=== PATIENT | male | born 1970 ===

== ENCOUNTER 2019-03-29 16:50 | Inpatient (IN) ==
[2019-03-29] MEDS ORDERED: ALBUTEROL 2.5 MG/3 ML NEB RESP TX PRN (18:43)
[2019-03-29] MEDS: SODIUM CHLORIDE 0.9% 1,000 ML IV SCH ×2 (18:45→22:35)
[2019-03-29] MEDS: MORPHINE 4 MG/1 ML VIAL IV PRN ×2 (20:04→23:33)
[2019-03-29] MEDS: ENOXAPARIN 30 MG/0.3 ML SYRINGE SUBCUT SCH (20:06)
[2019-03-29 21:46] LABS: Hepatitis B Core IgM Quant 0.18 Index; Hepatitis B Surface Ag Quant 0.23 Index; Hepatitis B Surface Ag Result Negative (Negative); Hepatitis C Virus Ab Quant > 11.00 Index; Hepatitis C Virus Ab Result Positive (Negative)
[2019-03-29] MEDS: PIPERACILLIN/TAZOBACTAM 3,375 MG in SODIUM CHLORIDE 0.9% 100 ML IV SCH (23:34)
[2019-03-30] MEDS: HYDROmorphone 2 MG/1 ML VIAL IV PRN ×5 (01:48→21:44)
[2019-03-30] MEDS: SODIUM CHLORIDE 0.9% 1,000 ML IV SCH ×4 (03:14→14:56)
[2019-03-30 03:26] LABS: CKMB % 1.1 %
[2019-03-30 08:14] LABS: Basophils % 0.2 % (0.0-0.8); Eosinophils % 0.1 % (0.00-10.9); Hematocrit 37.2 VOL% (42.0-52.0); Hemoglobin 12.7 GM/DL (14.0-18.0); Immature Granulocytes % 0.6 %; Immature Granulocytes Absolute 0.07 #; Lymphocytes # 1.3 10*3/uL (1.4-4.0); Mean Corpuscular HGB Conc 34.1 GM/DL (32-36); Mean Corpuscular Volume 93.7 FL (87-102); Mean Platelet Volume 10.4 FL (9.6-12.0); Monocytes % 8.9 % (1.7-12.7); Neutrophils % 79.2 % (38.7-73.9); Platelet Count 116 T/CUMM (130-400); Red Blood Count 3.97 MC/CUMM (3.8-5.5); Red Cell Distribution Width 12.5 % (9.3-17.3); White Blood Count 11.6 T/CUMM (4-12)
[2019-03-30 08:35] LABS: Band Neutrophils 12 % (0-10); Lymphocytes 8 % (20-55); Platelet Estimate Decreased; Segmented Neutrophils 72 % (50-85); Total Cells Counted 100
[2019-03-30 08:52] LABS: Albumin 2.3 G/DL (3.4-5.0); Bilirubin,Total 1.1 MG/DL (0.2-1.0); Calcium 6.5 MG/DL (8.5-10.1); Osmolality,Calculated 293.5 MOS/KG (273-304); Total Protein 5.1 G/DL (6.4-8.3)
[2019-03-30 08:59] LABS: CKMB % 0.9 %
[2019-03-30] MEDS ORDERED: SODIUM BICARBONATE 50 MEQ/50 ML VIAL IV ONE (09:30)
[2019-03-30] MEDS: PANTOPRAZOLE 40 MG TABLET PO SCH (09:52)
[2019-03-30] MEDS: CALCIUM (CARBONATE) 600 MG TABLET PO SCH ×2 (09:53→21:44)
[2019-03-30] MEDS ORDERED: CALCIUM GLUCONATE 1,000 MG in SODIUM CHLORIDE 0.9% 100 ML IV ONE (10:00)
[2019-03-30] MEDS ORDERED: METOPROLOL TARTRATE 5 MG/5 ML VIAL IV ONE (11:44)
[2019-03-30] MEDS: PIPERACILLIN/TAZOBACTAM 3,375 MG in SODIUM CHLORIDE 0.9% 100 ML IV SCH (12:00)
[2019-03-30 12:25] LABS: Apearance,Urine Slightly Hazy (Clear); Bacteria,Urine Occasional /HPF (Few); Bilirubin,Urine Negative (Negative); Blood, Urine Large mg/dL (Negative); Glucose,Urine (UA) Negative (Negative); Ketones,Urine Negative (Negative); Nitrite,Urine Negative (Negative); Protein,Urine Negative; RBC,Urine 3 /HPF (0-4); Urine Color Yellow (Yellow); Urine Specific Gravity 1.006 (1.001-1.035); Urine Urobilinogen < 2.0 EU/DL (0.2-1.0)
[2019-03-30 13:57] LABS: CKMB % 0.8 %
[2019-03-30 20:13] LABS: CKMB % 0.7 %
[2019-03-30] MEDS: ENOXAPARIN 30 MG/0.3 ML SYRINGE SUBCUT SCH (21:44)
[2019-03-31 01:03] LABS: Basophils % 0.2 % (0.0-0.8); Eosinophils % 0.2 % (0.00-10.9); Hematocrit 36.3 VOL% (42.0-52.0); Hemoglobin 12.5 GM/DL (14.0-18.0); Immature Granulocytes % 0.6 %; Immature Granulocytes Absolute 0.08 #; Lymphocytes # 1.4 10*3/uL (1.4-4.0); Lymphocytes % 10.9 % (21.2-54.2); Mean Corpuscular HGB Conc 34.4 GM/DL (32-36); Mean Corpuscular Volume 93.6 FL (87-102); Mean Platelet Volume 10.1 FL (9.6-12.0); Monocytes % 8.9 % (1.7-12.7); Neutrophils % 79.2 % (38.7-73.9); Platelet Count 117 T/CUMM (130-400); Red Blood Count 3.88 MC/CUMM (3.8-5.5); Red Cell Distribution Width 12.6 % (9.3-17.3); White Blood Count 12.6 T/CUMM (4-12)
[2019-03-31] MEDS: PIPERACILLIN/TAZOBACTAM 3,375 MG in SODIUM CHLORIDE 0.9% 100 ML IV SCH ×2 (01:05→11:05)
[2019-03-31 01:23] LABS: Albumin 2.2 G/DL (3.4-5.0); Bilirubin,Direct 0.26 MG/DL (0.0-0.20); Bilirubin,Indirect 0.5 MG/DL (0.0-1.0); Bilirubin,Total 0.8 MG/DL (0.2-1.0)
[2019-03-31 01:35] LABS: Albumin 2.2 G/DL (3.4-5.0); Bilirubin,Total 0.7 MG/DL (0.2-1.0); Calcium 7.5 MG/DL (8.5-10.1); Osmolality,Calculated 300.1 MOS/KG (273-304); Total Protein 5.2 G/DL (6.4-8.3)
[2019-03-31 01:43] LABS: CKMB % 0.5 %
[2019-03-31] MEDS: SODIUM CHLORIDE 0.9% 1,000 ML IV SCH ×6 (02:50→23:35)
[2019-03-31 07:58] LABS: CKMB % 0.5 %
[2019-03-31] MEDS: PANTOPRAZOLE 40 MG TABLET PO SCH (08:11)
[2019-03-31] MEDS: CALCIUM (CARBONATE) 600 MG TABLET PO SCH ×2 (08:11→20:18)
[2019-03-31] MEDS ORDERED: ALUM/MAG/SIMETH/LIDO VISC 1:1 30 ML BOTTLE PO ONE (08:41)
[2019-03-31 13:43] LABS: CKMB % 0.4 %
[2019-03-31] MEDS ORDERED: ALUMINUM/MAGNES/SIMETH MAX STR 30 ML UDCUP PO PRN (17:16)
[2019-03-31 20:16] LABS: CKMB % 0.4 %
[2019-03-31] MEDS: ENOXAPARIN 30 MG/0.3 ML SYRINGE SUBCUT SCH (20:18)
[2019-03-31] MEDS: HYDROmorphone 2 MG/1 ML VIAL IV PRN (22:18)
[2019-04-01] MEDS: PIPERACILLIN/TAZOBACTAM 3,375 MG in SODIUM CHLORIDE 0.9% 100 ML IV SCH ×2 (01:32→12:14)
[2019-04-01 01:39] LABS: Basophils % 0.3 % (0.0-0.8); Eosinophils # 0.1 10*3/uL (0.0-0.87); Eosinophils % 0.6 % (0.00-10.9); Hematocrit 36.3 VOL% (42.0-52.0); Hemoglobin 12.7 GM/DL (14.0-18.0); Immature Granulocytes % 0.6 %; Immature Granulocytes Absolute 0.08 #; Lymphocytes % 14.5 % (21.2-54.2); Mean Corpuscular Volume 92.4 FL (87-102); Mean Platelet Volume 10.3 FL (9.6-12.0); Monocytes % 9.1 % (1.7-12.7); Neutrophils % 74.9 % (38.7-73.9); Platelet Count 119 T/CUMM (130-400); Red Blood Count 3.93 MC/CUMM (3.8-5.5); Red Cell Distribution Width 12.7 % (9.3-17.3); White Blood Count 13.8 T/CUMM (4-12)
[2019-04-01 02:11] LABS: Albumin 2.1 G/DL (3.4-5.0); Bilirubin,Direct 0.28 MG/DL (0.0-0.20); Bilirubin,Indirect 0.4 MG/DL (0.0-1.0); Bilirubin,Total 0.7 MG/DL (0.2-1.0); Calcium 7.7 MG/DL (8.5-10.1); Osmolality,Calculated 305.8 MOS/KG (273-304); Total Protein 5.3 G/DL (6.4-8.3)
[2019-04-01 02:18] LABS: CKMB % 0.3 %
[2019-04-01] MEDS: SODIUM CHLORIDE 0.9% 1,000 ML IV SCH ×3 (04:10→12:13)
[2019-04-01] MEDS: MORPHINE 4 MG/1 ML VIAL IV PRN (04:51)
[2019-04-01] MEDS: ACETAMINOPHEN 325 MG TABLET PO PRN (09:07)
[2019-04-01] MEDS: CALCIUM (CARBONATE) 600 MG TABLET PO SCH ×2 (09:07→22:10)
[2019-04-01] MEDS: PANTOPRAZOLE 40 MG TABLET PO SCH (09:08)
[2019-04-01] MEDS: amLODIPine 5 MG TABLET PO SCH (09:08)
[2019-04-01] MEDS ORDERED: PNEUMOCOCCAL VACCINE (23 VALENT) 0.5 ML VIAL IM ONE (18:57)
[2019-04-01] MEDS: ENOXAPARIN 30 MG/0.3 ML SYRINGE SUBCUT SCH (22:10)
[2019-04-02] MEDS: SODIUM CHLORIDE 0.9% 1,000 ML IV SCH ×6 (04:43→20:59)
[2019-04-02 08:36] LABS: Basophils # 0.1 10*3/uL (0.0-0.2); Basophils % 0.3 % (0.0-0.8); Eosinophils # 0.3 10*3/uL (0.0-0.87); Eosinophils % 2.1 % (0.00-10.9); Hematocrit 35.4 VOL% (42.0-52.0); Hemoglobin 12.3 GM/DL (14.0-18.0); Immature Granulocytes % 1.5 %; Immature Granulocytes Absolute 0.23 #; Lymphocytes % 13.5 % (21.2-54.2); Mean Corpuscular HGB Conc 34.7 GM/DL (32-36); Mean Corpuscular Volume 92.4 FL (87-102); Mean Platelet Volume 10.6 FL (9.6-12.0); Monocytes % 10.8 % (1.7-12.7); Neutrophils % 71.8 % (38.7-73.9); Platelet Count 118 T/CUMM (130-400); Red Blood Count 3.83 MC/CUMM (3.8-5.5); Red Cell Distribution Width 12.8 % (9.3-17.3)
[2019-04-02] MEDS: PANTOPRAZOLE 40 MG TABLET PO SCH (09:05)
[2019-04-02] MEDS: CALCIUM (CARBONATE) 600 MG TABLET PO SCH ×2 (09:05→20:57)
[2019-04-02] MEDS: amLODIPine 5 MG TABLET PO SCH (09:05)
[2019-04-02 09:10] LABS: Albumin 2.1 G/DL (3.4-5.0); Bilirubin,Direct 0.2 MG/DL (0.0-0.20); Bilirubin,Indirect 0.6 MG/DL (0.0-1.0); Bilirubin,Total 0.8 MG/DL (0.2-1.0); Calcium 7.9 MG/DL (8.5-10.1); Osmolality,Calculated 305.7 MOS/KG (273-304); Total Protein 5.2 G/DL (6.4-8.3)
[2019-04-02] MEDS: ACETAMINOPHEN 325 MG TABLET PO PRN (09:18)
[2019-04-02] MEDS: POLYETHYLENE GLYCOL POWDER 17 GM PACK PO SCH (14:09)
[2019-04-02] MEDS: clonazePAM 0.5 MG TABLET PO PRN (16:12)
[2019-04-02] MEDS: ENOXAPARIN 30 MG/0.3 ML SYRINGE SUBCUT SCH (20:58)
[2019-04-03] MEDS: SODIUM CHLORIDE 0.9% 1,000 ML IV SCH (06:21)
[2019-04-03] MEDS: POLYETHYLENE GLYCOL POWDER 17 GM PACK PO SCH (08:51)
[2019-04-03] MEDS: PANTOPRAZOLE 40 MG TABLET PO SCH (08:57)
[2019-04-03] MEDS: CALCIUM (CARBONATE) 600 MG TABLET PO SCH ×2 (08:57→20:39)
[2019-04-03] MEDS: amLODIPine 5 MG TABLET PO SCH (08:57)
[2019-04-03 09:44] LABS: Calcium 7.7 MG/DL (8.5-10.1)
[2019-04-03] MEDS ORDERED: MAGNESIUM SULF RIDER 4 GM in PREMIX 1 EACH IV PRN (10:12)
[2019-04-03] MEDS: SODIUM CHLORIDE 0.45% 1,000 ML IV SCH ×2 (10:34→23:20)
[2019-04-03] MEDS: MAGNESIUM SULF RIDER 2 GM in PREMIX 1 EACH IV PRN (10:34)
[2019-04-03] MEDS: clonazePAM 0.5 MG TABLET PO PRN (13:44)
[2019-04-03] MEDS: ENOXAPARIN 30 MG/0.3 ML SYRINGE SUBCUT SCH (20:39)
[2019-04-04] MEDS: SODIUM CHLORIDE 0.45% 1,000 ML IV SCH ×3 (02:14→17:00)
[2019-04-04 06:04] LABS: Basophils # 0.1 10*3/uL (0.0-0.2); Basophils % 0.5 % (0.0-0.8); Eosinophils % 6.5 % (0.00-10.9); Hematocrit 34.7 VOL% (42.0-52.0); Immature Granulocytes % 3.6 %; Immature Granulocytes Absolute 0.53 #; Lymphocytes # 2.8 10*3/uL (1.4-4.0); Lymphocytes % 18.9 % (21.2-54.2); Mean Corpuscular HGB Conc 34.6 GM/DL (32-36); Mean Corpuscular Volume 92.8 FL (87-102); Mean Platelet Volume 10.4 FL (9.6-12.0); Monocytes % 11.7 % (1.7-12.7); Neutrophils % 58.8 % (38.7-73.9); Platelet Count 137 T/CUMM (130-400); Red Blood Count 3.74 MC/CUMM (3.8-5.5); Red Cell Distribution Width 12.9 % (9.3-17.3); White Blood Count 14.8 T/CUMM (4-12)
[2019-04-04 06:29] LABS: Calcium 7.7 MG/DL (8.5-10.1); Osmolality,Calculated 292.3 MOS/KG (273-304)
[2019-04-04 08:21] LABS: Eosinophils 5 % (0-10); Lymphocytes 11 % (20-55); Nucleated Red Blood Cells 1 (0-5); Platelet Estimate Adequate; Polychromasia Slight; Segmented Neutrophils 78 % (50-85); Total Cells Counted 100
[2019-04-04] MEDS: CALCIUM (CARBONATE) 600 MG TABLET PO SCH ×2 (08:39→22:17)
[2019-04-04] MEDS: PANTOPRAZOLE 40 MG TABLET PO SCH (08:40)
[2019-04-04] MEDS: POLYETHYLENE GLYCOL POWDER 17 GM PACK PO SCH (08:40)
[2019-04-04] MEDS: amLODIPine 5 MG TABLET PO SCH (08:40)
[2019-04-04] MEDS: NICOTINE 21 MG/24 HR PATCH TRANSDERM SCH (13:41)
[2019-04-04] MEDS: MAGNESIUM SULF RIDER 2 GM in PREMIX 1 EACH IV PRN (13:41)
[2019-04-04] MEDS: clonazePAM 0.5 MG TABLET PO PRN (15:04)
[2019-04-04] MEDS: ENOXAPARIN 30 MG/0.3 ML SYRINGE SUBCUT SCH (22:17)
[2019-04-05] MEDS: SODIUM CHLORIDE 0.45% 1,000 ML IV SCH ×4 (00:48→17:06)
[2019-04-05] MEDS: clonazePAM 0.5 MG TABLET PO PRN ×2 (02:50→17:05)
[2019-04-05 07:32] LABS: Albumin 2.2 G/DL (3.4-5.0); Bilirubin,Total 0.6 MG/DL (0.2-1.0); Osmolality,Calculated 291.3 MOS/KG (273-304); Total Protein 5.4 G/DL (6.4-8.3)
[2019-04-05] MEDS: POLYETHYLENE GLYCOL POWDER 17 GM PACK PO SCH (08:53)
[2019-04-05] MEDS: CALCIUM (CARBONATE) 600 MG TABLET PO SCH ×2 (08:53→21:15)
[2019-04-05] MEDS: amLODIPine 5 MG TABLET PO SCH (08:53)
[2019-04-05] MEDS: PANTOPRAZOLE 40 MG TABLET PO SCH (08:53)
[2019-04-05] MEDS: NICOTINE 21 MG/24 HR PATCH TRANSDERM SCH (08:54)
[2019-04-05 10:31] LABS: Barbiturates Screen,Urine Negative (Negative); Benzodiazepines Screen,Urine Negative (Negative); Cannabinoid Screen,Urine Negative (Negative); Opiate Screen,Urine Positive (Negative); Phencyclidine Screen,Urine Negative (Negative)
[2019-04-05] MEDS: ALFUZOSIN 10 MG TABLET PO SCH (12:31)
[2019-04-05 16:26] LABS: Apearance,Urine CLEAR (Clear); Bilirubin,Urine Negative (Negative); Blood, Urine Small mg/dL (Negative); Glucose,Urine (UA) Negative (Negative); Ketones,Urine Negative (Negative); Mucus,Urine Occasional /LPF (Occasional); Nitrite,Urine Negative (Negative); Protein,Urine Negative; RBC,Urine 1 /HPF (0-4); Urine Color Straw (Yellow); Urine Specific Gravity 1.005 (1.001-1.035); Urine Urobilinogen < 2.0 EU/DL (0.2-1.0); WBC,Urine <1 /HPF (0-6)
[2019-04-05] MEDS: ENOXAPARIN 30 MG/0.3 ML SYRINGE SUBCUT SCH (21:17)
[2019-04-06] MEDS: clonazePAM 0.5 MG TABLET PO PRN ×2 (00:06→20:50)
[2019-04-06] MEDS: SODIUM CHLORIDE 0.45% 1,000 ML IV SCH ×4 (00:15→16:13)
[2019-04-06] MEDS ORDERED: MEPERIDINE 25 MG/1 ML VIAL IM ONE (05:42)
[2019-04-06 06:30] LABS: Albumin 2.2 G/DL (3.4-5.0); Bilirubin,Total 0.6 MG/DL (0.2-1.0); Calcium 7.9 MG/DL (8.5-10.1); Total Protein 5.3 G/DL (6.4-8.3)
[2019-04-06 06:39] LABS: Uric Acid 5.3 MG/DL (3.5-7.2)
[2019-04-06] MEDS: ALFUZOSIN 10 MG TABLET PO SCH (10:40)
[2019-04-06] MEDS: CALCIUM (CARBONATE) 600 MG TABLET PO SCH ×2 (10:40→20:42)
[2019-04-06] MEDS: amLODIPine 5 MG TABLET PO SCH (10:40)
[2019-04-06] MEDS: PANTOPRAZOLE 40 MG TABLET PO SCH ×2 (10:41→20:42)
[2019-04-06] MEDS: POLYETHYLENE GLYCOL POWDER 17 GM PACK PO SCH (10:41)
[2019-04-06] MEDS: NICOTINE 21 MG/24 HR PATCH TRANSDERM SCH (10:41)
[2019-04-06] MEDS: MORPHINE 4 MG/1 ML VIAL IV PRN ×2 (10:50→16:53)
[2019-04-06] MEDS: ALUM/MAG/SIMETH/LIDO VISC 1:1 30 ML BOTTLE PO PRN (17:00)
[2019-04-07] MEDS: MORPHINE 4 MG/1 ML VIAL IV PRN ×2 (03:15→10:15)
[2019-04-07] MEDS: clonazePAM 0.5 MG TABLET PO PRN ×3 (05:10→22:03)
[2019-04-07] MEDS: SODIUM CHLORIDE 0.45% 1,000 ML IV SCH ×5 (05:20→22:05)
[2019-04-07] MEDS: ALUM/MAG/SIMETH/LIDO VISC 1:1 30 ML BOTTLE PO PRN (06:02)
[2019-04-07] MEDS ORDERED: LACTATED RINGERS 1,000 ML IV SCH (08:00)
[2019-04-07 08:22] LABS: Basophils # 0.1 10*3/uL (0.0-0.2); Basophils % 0.3 % (0.0-0.8); Eosinophils # 0.3 10*3/uL (0.0-0.87); Eosinophils % 1.8 % (0.00-10.9); Hematocrit 31.6 VOL% (42.0-52.0); Hemoglobin 10.8 GM/DL (14.0-18.0); Immature Granulocytes % 1.1 %; Lymphocytes # 2.7 10*3/uL (1.4-4.0); Lymphocytes % 14.6 % (21.2-54.2); Mean Corpuscular HGB Conc 34.2 GM/DL (32-36); Mean Corpuscular Volume 93.8 FL (87-102); Mean Platelet Volume 10.2 FL (9.6-12.0); Monocytes % 6.6 % (1.7-12.7); Neutrophils % 75.6 % (38.7-73.9); Platelet Count 239 T/CUMM (130-400); Red Blood Count 3.37 MC/CUMM (3.8-5.5); White Blood Count 18.8 T/CUMM (4-12)
[2019-04-07 08:43] LABS: Albumin 2.5 G/DL (3.4-5.0); Bilirubin,Total 0.5 MG/DL (0.2-1.0); Calcium 8.4 MG/DL (8.5-10.1); Osmolality,Calculated 289.1 MOS/KG (273-304); Total Protein 5.6 G/DL (6.4-8.3)
[2019-04-07] MEDS: POLYETHYLENE GLYCOL POWDER 17 GM PACK PO SCH (09:43)
[2019-04-07] MEDS: NICOTINE 21 MG/24 HR PATCH TRANSDERM SCH (09:44)
[2019-04-07] MEDS: ALFUZOSIN 10 MG TABLET PO SCH (09:44)
[2019-04-07] MEDS: amLODIPine 5 MG TABLET PO SCH (09:45)
[2019-04-07] MEDS: CALCIUM (CARBONATE) 600 MG TABLET PO SCH ×2 (09:45→22:03)
[2019-04-07] MEDS: PANTOPRAZOLE 40 MG TABLET PO SCH ×3 (09:47→22:02)
[2019-04-07 15:55] LABS: Myeloperoxidase Antibody < 0.2 U
[2019-04-08 05:50] LABS: Albumin 2.3 G/DL (3.4-5.0); Bilirubin,Total 0.4 MG/DL (0.2-1.0); Calcium 7.9 MG/DL (8.5-10.1); Osmolality,Calculated 291.8 MOS/KG (273-304); Total Protein 5.3 G/DL (6.4-8.3)
[2019-04-08] MEDS: SODIUM CHLORIDE 0.45% 1,000 ML IV SCH ×3 (08:58→14:26)
[2019-04-08] MEDS: MORPHINE 4 MG/1 ML VIAL IV PRN ×3 (08:58→20:02)
[2019-04-08] MEDS ORDERED: LACTATED RINGERS 1,000 ML IV SCH (10:30)
[2019-04-08 10:54] LABS: Antinuclear Ab, S 0.8 U; Cyclic Citrull Peptide Ab Mayo < 15.6 U
[2019-04-08 10:59] LABS: Cryofibrinogen, P Negative (Negative)
[2019-04-08] MEDS: CALCIUM (CARBONATE) 600 MG TABLET PO SCH ×2 (12:31→20:02)
[2019-04-08] MEDS: NICOTINE 21 MG/24 HR PATCH TRANSDERM SCH (12:31)
[2019-04-08] MEDS: ALFUZOSIN 10 MG TABLET PO SCH (12:31)
[2019-04-08] MEDS: amLODIPine 5 MG TABLET PO SCH (12:31)
[2019-04-08] MEDS: POLYETHYLENE GLYCOL POWDER 17 GM PACK PO SCH (12:34)
[2019-04-08] MEDS: PANTOPRAZOLE 40 MG TABLET PO SCH ×2 (12:40→20:02)
[2019-04-08] MEDS ORDERED: PROPOFOL 200 MG/20 ML VIAL IV ONE (18:17)
[2019-04-08] MEDS ORDERED: LIDOCAINE 100 MG/5 ML SYRINGE ONE (18:17)
[2019-04-08] MEDS: clonazePAM 0.5 MG TABLET PO PRN (20:12)
[2019-04-09] MEDS: MORPHINE 4 MG/1 ML VIAL IV PRN ×3 (00:31→09:25)
[2019-04-09] MEDS: clonazePAM 0.5 MG TABLET PO PRN (04:54)
[2019-04-09] MEDS ORDERED: FUROSEMIDE 40 MG/4 ML VIAL IV ONE (07:32)
[2019-04-09] MEDS: ALFUZOSIN 10 MG TABLET PO SCH (08:00)
[2019-04-09] MEDS: ACETAMINOPHEN 325 MG TABLET PO PRN (08:00)
[2019-04-09] MEDS: NICOTINE 21 MG/24 HR PATCH TRANSDERM SCH (08:01)
[2019-04-09] MEDS: CALCIUM (CARBONATE) 600 MG TABLET PO SCH (08:01)
[2019-04-09] MEDS: PANTOPRAZOLE 40 MG TABLET PO SCH (08:01)
[2019-04-09] MEDS: amLODIPine 5 MG TABLET PO SCH (08:01)
[2019-04-09] MEDS: SODIUM CHLORIDE 0.45% 1,000 ML IV SCH (08:05)
[2019-04-09 08:21] LABS: Basophils # 0.1 10*3/uL (0.0-0.2); Basophils % 0.5 % (0.0-0.8); Eosinophils # 0.3 10*3/uL (0.0-0.87); Eosinophils % 2.1 % (0.00-10.9); Hematocrit 32.3 VOL% (42.0-52.0); Hemoglobin 10.7 GM/DL (14.0-18.0); Immature Granulocytes Absolute 0.15 #; Lymphocytes # 2.1 10*3/uL (1.4-4.0); Mean Corpuscular HGB Conc 33.1 GM/DL (32-36); Mean Corpuscular Volume 96.4 FL (87-102); Mean Platelet Volume 9.7 FL (9.6-12.0); Monocytes % 6.6 % (1.7-12.7); Neutrophils % 75.8 % (38.7-73.9); Platelet Count 335 T/CUMM (130-400); Red Blood Count 3.35 MC/CUMM (3.8-5.5); Red Cell Distribution Width 12.7 % (9.3-17.3); White Blood Count 14.9 T/CUMM (4-12)
[2019-04-09 08:41] LABS: Calcium 8.3 MG/DL (8.5-10.1); Osmolality,Calculated 286.1 MOS/KG (273-304)
[2019-04-09] MEDS: POLYETHYLENE GLYCOL POWDER 17 GM PACK PO SCH (09:35)
[2019-04-09 10:20] VITALS: BP 147/89
== END 2019-04-09 15:29 | disposition home or self-care (01) | DRG 682 ==
LOC: N.ICU 18:17 → SUATTDRO 18:17 → N.5E 03-30 13:33
PROVIDERS: ADMIT Internal Medicine; ATTEND Internal Medicine